=== PATIENT | female | born 2000 | race Caucasian/White ===

== ENCOUNTER 2019-05-19 20:24 | Emergency (ER) | payer BC ==
[2019-05-19 20:44] VITALS: BP 122/84
[2019-05-19 21:33] LABS: Influenza B Molecular POSITIVE (Negative)
--- NOTE | 2019-05-19 21:44 | UC ---
FLU HPI - HPI Summary HPI Summary: 19-year-old female presents with 2 day history of fever, chills, fatigue, general malaise, body aches, nasal congestion, sore throat, a dry nonproductive cough. States she feels mildly short of breath and wheezy with activity. No history of asthma. Denies ear pain, dysphagia, chest pain, abdominal pain, nausea, vomiting, or diarrhea. - History of Current Complaint Chief Complaint: UCRespiratory Stated Complaint: SORE THROAT, EARACHE Time Seen by Provider: 05/19/19 21:40 Hx Obtained From: Patient Hx Last Menstrual Period: 04/28/19 Pain Intensity: 7 - Allergy/Home Medications Allergies/Adverse Reactions: Allergies Allergy/AdvReac Type Severity Reaction Status Date / Time No Known Allergies Allergy Verified 05/19/19 20:44 PMH/Surg Hx/FS Hx/Imm Hx Previously Healthy: Yes - Denies significant PMH - Surgical History Surgical History: None - Family History Known Family History: Positive: Non-Contributory - Social History Occupation: Student Lives: Dormitory/Roommates Alcohol Use: Weekly Alcohol Amount: twice Substance Use Type: None Smoking Status (MU): Never Smoked Tobacco Review of Systems All Other Systems Reviewed And Are Negative: Yes Constitutional: Positive: Fever, Chills, Fatigue Skin: Negative: Rash Eyes: Negative: Drainage, Eye Redness ENT: Positive: Sore Throat, Nasal Discharge, Sinus Congestion. Negative: Ear Ache, Sinus Pain/Tenderness Respiratory: Positive: Shortness Of Breath, Cough, Other - Wheezing Cardiovascular: Negative: Palpitations, Chest Pain Gastrointestinal: Negative: Abdominal Pain, Vomiting, Diarrhea, Nausea Genitourinary: Positive: Negative Musculoskeletal: Positive: Myalgia Neurological: Positive: Negative Is Patient Immunocompromised?: No Physical Exam - Summary Physical Exam Summary: GENERAL APPEARANCE: Well developed, well nourished, alert and cooperative, and appears to be in no acute distress. EYES: Conjunctiva clear. No drainage. EARS: External auditory canals and tympanic membranes clear, hearing grossly intact. NOSE: Mild to moderate nasal congestion. No nasal discharge. THROAT: Pharyngeal erythema. No tonsilar inflammation, swelling, exudate, or lesions. Uvula midline. NECK: Neck supple, non-tender without lymphadenopathy. CARDIAC: Normal S1 and S2. No S3, S4 or murmurs. Rhythm is regular. There is no peripheral edema, cyanosis or pallor. Extremities are warm and well perfused. Capillary refill is less than 2 seconds. Peripheral pulses intact. LUNGS: Clear to auscultation without rales, rhonchi, wheezing or diminished breath sounds. Dry nonproductive cough. ABDOMEN: Positive bowel sounds. Soft, nondistended, nontender. No guarding or rebound. No masses or hepatosplenomegally. MUSKULOSKELETAL: ROM intact to all extremities. No joint erythema or tenderness. Normal muscular development. Normal gait. SKIN: Skin normal color, texture and turgor with no lesions or eruptions. Triage Information Reviewed: Yes Vital Signs: Initial Vital Signs Temp 100.5 F 05/19/19 20:38 Pulse 105 05/19/19 20:38 Resp 20 05/19/19 20:38 BP 122/84 05/19/19 20:38 Pulse Ox 100 05/19/19 20:38 Vital Signs Reviewed: Yes Flu Course/Dx - Course Course Of Treatment: 19-year-old female presents with 2 day history of fever, chills, fatigue, general malaise, body aches, nasal congestion, sore throat, a dry nonproductive cough. States she feels mildly short of breath and wheezy with activity. No history of asthma. Denies ear pain, dysphagia, chest pain, abdominal pain, nausea, vomiting, or diarrhea. Patient had a mildly elevated temperature of 100.5 F with a corresponding mild tachycardia otherwise vital signs are stable. Patient had been moderate nasal congestion, normal TMs, pharyngeal erythema, clear bilateral breath sounds, dry nonproductive cough, and otherwise unremarkable exam. Rapid flu test was positive for influenza B. Reviewed results with patient and we discussed the risks and benefits of treating with Tamiflu which she is electing to start at this time. She was given the first dose in the clinic. Also going to provide her with an albuterol inhaler to use as needed for shortness of breath and wheezing. Recommending symptomatic treatment including Tessalon Perles one capsule every 8 hours as needed for cough. She was given a dose of this in the clinic as well. She is to follow up at the [facility]note 3] in 5-7 days if symptoms are not improving. Anticipatory guidance warning symptoms are reviewed with the patient. Verbalizes understanding and agrees with plan of care. - Differential Dx/Diagnosis Differential Diagnosis/HQI/PQRI: Bronchitis, Influenza, Pneumonia, Upper Respiratory Infection Provider Diagnosis: Influenza B Discharge ED - Sign-Out/Discharge Documenting (check all that apply): Patient Departure All imaging exams completed and their final reports reviewed: No Studies - Discharge Plan Condition: Stable Disposition: HOME Prescriptions: Benzonatate CAP* [Tessalon 100 MG CAP*] 100 mg PO TID PRN #21 cap PRN Reason: Cough Oseltamivir CAP* [Tamiflu CAP*] 75 mg PO BID #9 cap Patient Education Materials: Influenza (ED) Referrals: No Primary Care Phys,NOPCP [Primary Care Provider] - Additional Instructions: Your flu test in the clinic today was positive for influenza B. Start Tamiflu 1 capsule twice a day for 5 days. We gave you the first dose in the clinic. Get plenty of rest. Drink plenty of fluids to avoid dehydration especially if you are running any fever. Use the albuterol inhaler 2 puffs every 4-6 hours as needed for shortness of breath or wheezing. Take over the counter acetaminophen (Tylenol) or ibuprofen (Advil, Motrin) according to directions as needed for pain or fever. Take Tessalon Perles 1 cap every 8 hours as needed for cough. You received a dose in the clinic at approximately 10:00 pm. Use salt water gargles several times a day if you have a sore throat. You may also use Chloraseptic spray or Cepacol lonzenges according to directions which contain a numbing medication and can provide some temporary relief from your sore throat. Follow up with the [facility] in 5-7 days if symptoms persist. Seek immediate medical attention in the emergency room if you have fever greater than 100.5 F despite taking acetaminophen or ibuprofen, have chest pain , difficulty breathing, are unable to swallow, or have any worsening of symptoms. - Billing Disposition and Condition Condition: STABLE Disposition: Home
[2019-05-19] MEDS ORDERED: Oseltamivir CAP* 75 MG CAP PO ONE (21:50)
[2019-05-19] MEDS ORDERED: Benzonatate CAP* 100 MG PO ONE (21:50)
[2019-05-19] MEDS ORDERED: Albuterol HFA INHALER* 8 gm MDI INH ONE (21:51)
== END 2019-05-19 22:21 | disposition home or self-care (01) ==
LOC: UCEAST 20:24
DX: J10.1 Influenza due to other identified influenza virus with other respiratory manifestations (principal)
CPT/HCPCS: 87651; 99203; A9270-GY; G0463